=== PATIENT | male | born 1960 | race Caucasian/White ===

== ENCOUNTER 2024-12-16 07:44 | Outpatient (CLI) | payer BC ==
[2024-12-16 08:24] LABS: Estimated GFR - POC 97.0
== END 2024-12-16 07:45 | disposition home or self-care (01) ==
LOC: SCSMRI 07:44
PROVIDERS: ATTEND Urology
DX: C61 Malignant neoplasm of prostate (principal)
CPT/HCPCS: 36415; 72197; 82565

== ENCOUNTER 2025-01-28 11:00 | Outpatient (CLI) | payer BC ==
[2025-01-28 11:52] LABS: #Basophils 0.05 10x3/uL (0.0-0.2); #Eosinophils 0.11 10x3/uL (0.0-0.7); #Monocytes 0.39 10x3/uL (0.11-0.59); #Neutrophils 4.42 10x3/uL (1.40-6.50); %Basophils 0.7 % (0.0-1.0); %Eosinophils 1.6 % (0.0-10.0); %Lymphocytes 25.6 % (21.0-51.0); %Monocytes 5.8 % (0.0-10.0); %Neutrophils 65.9 % (42.0-75.0); Hematocrit 47.1 % (42.0-52.0); Hemoglobin 16.0 g/dL (14.0-18.0); Mean Corpuscular Hemoglobin 31.3 pg (27.0-31.0); Mean Corpuscular Volume 92.0 fL (78.0-98.0); Platelet Count 156 10x3/uL (130-400); Red Blood Cell (RBC) Count 5.12 mill/uL (4.70-6.10); White Blood Cell (WBC) Count 6.72 10x3/uL (4.8-10.8)
[2025-01-28 12:01] LABS: Glucose, Urine (Dipstick) Normal (Negative); Leukocyte 75 Leu/uL (Negative); Protein, Urine (Dipstick) Negative (Neg-Trace); RBC/HPF 0-3 HPF (0-3); Specific Gravity, Urine 1.024 (1.002-1.036)
[2025-01-28 12:02] LABS: Bacteria/HPF 1+ HPF (None Seen)
[2025-01-28 12:05] LABS: INR-International Normal Ratio 1.1; PTT 31.1 sec (22.9-36.1); Prothrombin Time 14.3 sec (12.0-14.7)
[2025-01-28 12:16] LABS: ALT (SGPT) 20 U/L (Less than 45); AST (SGOT) 20 U/L (11-34); Albumin 4.4 g/dL (3.1-4.5); Alkaline Phosphatase 75 U/L (40-110); Anion Gap 10 mmol/L (10-20); BUN (Urea Nitrogen) 17 mg/dL (8.4-25.7); Bilirubin, Total 0.9 mg/dL (0.3-1.2); Calc. Creatinine Clearance 0 mL/min (70-130); Calcium 9.4 mg/dL (7.8-10.44); Carbon Dioxide 29 mmol/L (23-31); Chloride 110 mmol/L (98-107); Globulin 2.8 g/dL (2.4-3.5); Glucose 98 mg/dL (80-115); Potassium 4.1 mmol/L (3.5-5.1); Sodium 145 mmol/L (136-145)
== END 2025-01-28 11:01 | disposition home or self-care (01) ==
LOC: LABBT 11:00
PROVIDERS: ATTEND Urology
DX: Z01.818 Encounter for other preprocedural examination (principal); C61 Malignant neoplasm of prostate; N40.1 Benign prostatic hyperplasia with lower urinary tract symptoms; N13.8 Other obstructive and reflux uropathy; N52.9 Male erectile dysfunction, unspecified
CPT/HCPCS: 80053; 81001; 85025; 85610; 85730; 86850; 86900; 86901; 87077; 87086; 93005

== ENCOUNTER 2025-01-29 12:30 | Outpatient (CLI) | payer BC | END 2025-01-29 12:31 | disposition home or self-care (01) | LOC: PET 12:30 | PROVIDERS: ATTEND Urology | DX: C61 Malignant neoplasm of prostate (principal); C77.9 Secondary and unspecified malignant neoplasm of lymph node, unspecified | CPT/HCPCS: 78815; A9595-JZ ==